=== PATIENT | male | born 1975 | race Caucasian/White ===

== ENCOUNTER 2022-01-01 18:27 | Day surgery (SDCO) | payer OTHER ==
[~2022-01-01] VITALS: Ht 175.3 cm; Wt 100.3 kg
[2022-01-01 18:46] LABS: BILIRUBIN NEGATIVE (NEGATIVE); BLOOD NEGATIVE Ery/uL (NEGATIVE); CLARITY CLEAR (CLEAR); COLOR YELLOW (YELLOW); GLUCOSE (U) NORMAL (NORMAL); LEUKOCYTES NEGATIVE Leu/uL (NEGATIVE); NITRITE NEGATIVE (NEGATIVE); PROTEIN NEGATIVE (NEGATIVE); SPECIFIC GRAVITY <=1.005 (1.001-1.030); UROBILINOGEN 0.2 mg/dL (0.2-1.0); pH 6.5 (5.0-9.0)
[2022-01-01 18:48] LABS: AMPHETAMINES NEGATIVE (NEGATIVE); BARBITURATES NEGATIVE (NEGATIVE); ECSTASY (MDMA) NEGATIVE (NEGATIVE); MARIJUANA (THC) NEGATIVE (NEGATIVE); METHADONE NEGATIVE (NEGATIVE); OPIATES NEGATIVE (NEGATIVE); OXYCODONE NEGATIVE (NEGATIVE)
[2022-01-01 19:31] LABS: BASOPHIL 0.1 % (0-2); EOSINOPHIL 1.6 % (0-5); HCT 47.5 % (42.0-52.0); HGB 15.9 g/dl (13.2-18.0); LYMPHOCYTE 33.1 % (15-48); MCH 30.6 pg (25.0-31.0); MCHC 33.5 g/dL (32.0-36.0); MCV 91.3 fL (78.0-100.0); MONOCYTE 6.9 % (0-12); MPV 10.4 fL (6.0-9.5); NRBC 0; PLT 240 K/uL (150-400); RDW 12.7 % (11.5-14.0); WBC 6.8 K/uL (4.0-10.5)
[2022-01-01 19:58] LABS: ACETAMINOPHEN (TYLENOL) < 2.0 ug/mL (10.0-30.0); ALBUMIN 3.9 g/dL (3.4-5.0); ALKALINE PHOSHATASE 72 U/L (46-116); ALT 39 U/L (16-63); AST 22 U/L (15-37); BILIRUBIN - TOTAL 0.3 mg/dL (0.2-1.0); BUN 13 mg/dL (7-18); BUN/CREAT RATIO (CALC) 15.1 RATIO; CHLORIDE 107 mmol/L (98-107); CO2 (BICARBONATE) 27 mmol/L (21-32); CREATININE 0.86 mg/dL (0.67-1.17); GLOBULIN (CALCULATION) 3.6 g/dL; GLUCOSE 115 mg/dL (74-106); POTASSIUM 3.7 mmol/L (3.5-5.1); TOTAL PROTEIN 7.5 g/dL (6.4-8.2)
[2022-01-02] MEDS ORDERED: EUTHYROX50 MCG PO (10:58)
[2022-01-02] MEDS ORDERED: OMEPRAZOLE40 MG PO (10:59)
[2022-01-02] MEDS ORDERED: CITALOPRAM HBR40 MG PO (10:59)
[2022-01-02] MEDS ORDERED: BUSPIRONE HCL15 M1 PO (11:00)
[2022-01-02] MEDS ORDERED: LISINOPRIL20 MG PO (11:00)
--- NOTE | 2022-01-02 12:03 | NUR ---
PT WAS AWAKE ENOUGH TO TELL ME WHERE HE IS AND NAME BIRTHDAY, ALSO SAID I COULD CALL AND GIVE INFO TO HIS AND MOM
--- NOTE | 2022-01-02 13:09 | NUR ---
ED CHARGE NURSE CALLED [employer] SAL[employer] EXECUTIVECONTROL PANEL OPERATOR [facility] PATIENTS HAS CALLED THE ED MULTIPLE TIMES DEMANDING TO COME VISIT HIM AND FOR THE STAFF TO GIVE HER PATIENT INFORMATION OVER THE PHONE. [employer] SALES EXECUTIVE SPOKE WITH PATIENTS - [facility] AND ATTEMPTED TO EXPLAIN OUR POLICY FOR PATIENTS SITUATION AND THE ORDERS OF THE MD SHE WAS EXPLAINED TO THAT AT THIS TIME HE COULD NOT HAVE ANY VISITORS AND UNTIL HE IS ABLE TO GIVE US PERMISSION WE ARE NOT ABLE TO GIVE HER INFORMATION AT THIS TIME OTHER THAN HE IS STABLE. ( SHE KNEW HE WAS HERE BECAUSE SHE WAS HERE UPON ARRIVAL LAST NIGHT). ATTEMPTED TO GET HER CONTACT INFORMATION FOR A CALL BACK TO HER WHEN HE DOES GIVE US PERMISSION- HOWEVER, AFTER SHE GOT DONE YELLING ANG THREATNING TO CALL A BREAKER OILER SHE HUNG UP. FOLLOWED BY SEVERAL MORE PHONE CALLS FROM HER AND HER SISTER TO ED STAFF- REPORTED BY ED STAFF. [employer] SAL[employer] EXECUTIVE SPOKE WITH MD AND HOSPITAL FARM EQUIPMENT MAINTENANCE SUPERVISOR REGARDING THE SITUATION AND POLOCY. FARM EQUIPMENT MAINTENANCE SUPERVISOR CONFIRMED THAT WE ARE NOT ALLOWED TO GIVE HER HIS INORMATION UNTIL HE IS ABLE TO WAKE UP ENOUGH AND IS ORIENTED AND ABLE TO GIVE UP PREMISSION TO DO SO. AND THAT HE IS NOT ALLOWED VISIORS AT THIS TIME PER POLICY AND MD REQUEST. [employer] SALES EXECUTIVE CALLED HER BACK EXPLAINING THIS AGAIN AND NOTIFING THAT OUR FARM EQUIPMENT MAINTENANCE SUPERVISOR HAS CONFIRMED THIS IS CORRECT. SHE WAS MOSTLY UNDERSTANDING AND RESPECTFUL OF THIS. SHE WAS ASSURED SOON HE WAS ABLE TO AND DOES ALLOW US TO WE WILL CALL HER WITH INFORMATION. WITH IN THE NEXT FEW HOURS THE PRIMARY NURSE REPORTED HE WOKE UP AND ANSWERED ORIENTATION QUESTIONS APPROPRIATLY AND GAVE US PERMISSION TO GIVE HER ANY INFORMATION ABOUT HIM SHE WANTED. PRIMARY RN REPORTED SHE THEN CALLED AND UPDATED HER. NO FURHTER ISSUES NOTED REGARDING THIS MATTER AT THIS TIME.
--- NOTE | 2022-01-02 18:47 | NUR ---
poison controlled, requested an ekg, will continue to monitor. and mother has called a couple of times nad was given updates
[2022-01-02 22:29] LABS: BUN/CREAT RATIO (CALC) 18.3 RATIO; CREATININE 0.82 mg/dL (0.67-1.17); MAGNESIUM 1.9 mg/dL (1.8-2.4); POTASSIUM 3.9 mmol/L (3.5-5.1)
[2022-01-03 04:15] LABS: BASOPHIL 0.3 % (0-2); EOSINOPHIL 2.3 % (0-5); HCT 47.9 % (42.0-52.0); HGB 15.8 g/dl (13.2-18.0); LYMPHOCYTE 25.8 % (15-48); MCH 30.6 pg (25.0-31.0); MCV 92.6 fL (78.0-100.0); MONOCYTE 9.5 % (0-12); MPV 10.1 fL (6.0-9.5); NEUTROPHIL 61.9 % (41-80); NRBC 0; PLT 231 K/uL (150-400); RBC 5.17 M/uL (4.70-6.00); RDW 13.1 % (11.5-14.0); WBC 9.3 K/uL (4.0-10.5)
[2022-01-03 04:32] LABS: BUN/CREAT RATIO (CALC) 16.5 RATIO; CREATININE 0.85 mg/dL (0.67-1.17); MAGNESIUM 2.4 mg/dL (1.8-2.4)
--- NOTE | 2022-01-03 13:47 | NUR ---
FOLLOW UP APPOINTMENT MADE WITH LISY MILAN FOR January AT 10AM PER PATIENT REQUEST TO CHANGE PCP
--- NOTE | 2022-01-03 15:13 | NUR ---
PT STABLE AND PLEASANT, ,MOTHER AND FATHER AT TIME OF DISCHARGE. BELONGINGS SENT HOME WITH PT SENT IN HOSPITAL GOWN,IV REMOVED, [facility] TRANSPORTED HIM TO [facility]
== END 2022-01-03 14:50 ==
LOC: FER 18:27 → FICU 01-02 08:36
PROVIDERS: Hospitalist; Internal Medicine; ADMIT Internal Medicine
DX: T43.592A Poisoning by other antipsychotics and neuroleptics, intentional self-harm, initial encounter (principal); T43.222A Poisoning by selective serotonin reuptake inhibitors, intentional self-harm, initial encounter; T46.4X2A Poisoning by angiotensin-converting-enzyme inhibitors, intentional self-harm, initial encounter; I10 Essential (primary) hypertension; E03.9 Hypothyroidism, unspecified; K21.9 Gastro-esophageal reflux disease without esophagitis; F17.200 Nicotine dependence, unspecified, uncomplicated; Z20.822 Contact with and (suspected) exposure to COVID-19
CPT/HCPCS: 36415; 80048; 80053; 80305; 81003; 82550; 83605; 83735; 84484; 85025; 93005; 96372; G0378; G0480; J2060; J3360; J3475; J7030; U0002